=== PATIENT | female | born 1965 | race Caucasian/White ===

== ENCOUNTER 2016-06-16 16:56 | Emergency (ER) | payer OTHER ==
[~2016-06-16 16:56] MED LIST: PEPCID40 MG PO; PERCOCET 325 MG1 TA2 PO
[2016-06-16 17:31] LABS: ABSOLUTE BASOPHIL COUNT 0.1 /CUMM (0.0-0.2); ABSOLUTE EOSINOPHIL COUNT 0.2 /CUMM (0.0-0.7); ABSOLUTE GRANULOCYTE CT 3.7 /CUMM (1.4-6.5); ABSOLUTE LYMPH COUNT 1.5 /CUMM (1.2-3.4); ABSOLUTE MONOCYTE COUNT 0.4 /CUMM (0.10-0.60); EOSINOPHIL % 2.6 % (0-5); GRANULOCYTE % 63.1 % (42.2-75.2); HEMATOCRIT 42.8 % (37-47); MEAN CORPUSCULAR HGB 28.4 PG (27.0-31.0); MEAN CORPUSCULAR HGB CONC 32.7 G/DL (33.0-37.0); MEAN CORPUSCULAR VOLUME 86.6 FL (81.0-99.0); PLATELET COUNT 177 /CUMM (130-400); RBC DISTRIBUTION WIDTH 13.4 % (11.5-14.5); RED BLOOD CELL CT 4.95 /CUMM (4.20-5.40); WHITE BLOOD CELL COUNT 5.8 /CUMM (4.8-10.8)
--- NOTE | 2016-06-16 17:39 | ED CARDIAC/CP/PALPITATIONS ---
History of Present Illness General Chief Complaint: Chest Pain Stated Complaint: CHEST PAIN Source: patient Exam Limitations: no limitations Vital Signs & Intake/Output Vital Signs & Intake/Output Vital Signs Date Time Temp Pulse Resp B/P Pulse O2 O2 Flow FiO2 Ox Delivery Rate 06/16 1739 96.9 66 18 121/63 100 Room Air Allergies Coded Allergies: Sulfa (Sulfonamide Antibiotics) (Severe, RASH, RESPIRATORY DISTRESS 06/16/16) Reconcile Medications Budesonide/Formoterol Fumarate (Symbicort 160-4.5 Mcg Inhaler) 160 MCG-4.5 MCG/ ACTUATION HFA.AER.AD 1 PUF INH BID ASTHMA (Reported) Estradiol (Vivelle-Dot) 0.075 MG/24 HOUR PATCH.TDSW 1 PATCH TOP 2XW HRT ( Reported) Triage Note: PT BROUGHT DIRECTLY BACK FOR WAITING RM FOR EKG DUE TO LEFT SIDED CHEST PAIN THAT READIATES INTO HER LEFT SHOULDER STARTING 30 MINS PRIOR TO ARRIVAL. PT STATES HE WOKE HER UP OUT OF A NAP. PT STATES SHE FELT "OFF" DURING LUNCH TODAY. PT DENIES CARDIAC HX Triage Nurses Notes Reviewed? yes HPI: 51-year-old female here with complaints of sudden onset left-sided chest pain to left lateral chest left breast area. It is moderate to severe sharp worse when she takes deep breath. She is not short of breath. She has no substernal chest pain, pain is not radiating. She states that she woke this morning not feeling entirely normal, states she was fatigued. She felt mildly nauseous intermittently throughout the day and did not have much of an appetite at lunch time. Proximally 45 minutes ago she had the sudden onset of left-sided chest pain radiating to the left shoulder area. It is better when she lays still and worse when she takes a deep breath. She is on hormonal replacement therapy via patch to the right lower pelvic region that she has been taking since her partial hysterectomy several years ago. She just had the dose increased 2 weeks ago. She has no history of DVT or PE, she has no leg swelling or edema there are no recent surgeries or periods of immobilization. She has a strong family history of heart disease with both her parents having MIs in the 50 and her mother, she believes, having a PE secondary to lupus. Both parents are . Patient denies any hemoptysis. There is been no treatment thus far. (HARDIK MARSH) Past History Travel History Traveled to [place] past 21 day No Medical History Any Pertinent Medical History? see below for history Neurological: NONE EENT: NONE Cardiovascular: NONE Respiratory: asthma Gastrointestinal: NONE Hepatic: NONE Renal: NONE Musculoskeletal: NONE Psychiatric: NONE Endocrine: NONE Blood Disorders: NONE Cancer(s): NONE MATH INSTRUCTOR/Reproductive: NONE Surgical History Surgical History: N Psychosocial History Who do you live with Spouse What is your primary language Syriac Family History Hx Contributory? Yes (VT, VTE) (HARDIK MARSH) Review of Systems Review of Systems Constitutional: Reports: see HPI. EENTM: Reports: no symptoms. Respiratory: Reports: see HPI. Cardiovascular: Reports: see HPI. GI: Reports: no symptoms. Genitourinary: Reports: no symptoms. Musculoskeletal: Reports: no symptoms. Skin: Reports: no symptoms. Neurological/Psychological: Reports: no symptoms. Hematologic/Endocrine: Reports: no symptoms. Immunologic/Allergic: Reports: no symptoms. All Other Systems: Reviewed and Negative (HARDKI MARSH) Physical Exam Physical Exam Respiratory: normal breath sounds, no respiratory distress Cardiovascular: regular rate/rhythm Comments: Well-developed well-nourished no apparent distress. HEENT: Atraumatic, extraocular motion intact Neck: Supple, no lymphadenopathy Back: Nontender Respiratory: No respiratory distress There is mild tenderness to the left lateral rib cage region and significant increased pain when taking deep breath. Extremities: No edema, full range of motion, nontender, no calf pain or tenderness Neuro: Alert and oriented x3 Psych: Mood affect normal, normal memory normal judgment. Skin: Warm and dry, no rash on exposed skin Core Measures ACS in differential dx? Yes Severe Sepsis Present: No Septic Shock Present: No (HARDIK MARSH) Progress Differential Diagnosis: AMI, aortic dissection, atrial fibrillation, cholecystitis, CHF/pulm edema, costochondritis, hyperkalemia, hypovolemia, hyperthyroid, hyperventilation, intracranial hemorrhage, musculoskeletal pain, myocarditis, pancreatitis, pericarditis, pneumonia, pneumothorax, PSVT, pulmonary embolism, PUD/GERD, PVCs/PACs, respiratory failure, rib fracture, sepsis, unstable angina, V-fib/V-Tach, WPW syndrome Plan of Care: Orders Procedure Date/time Status EKG 06/17 1923 Active TROPONIN LEVEL 03/24 1724 Complete COMPREHENSIVE METABOLIC PANEL 03/24 1724 Complete CBC WITHOUT DIFFERENTIAL 06/16 172 Complete EKG 06/16 1657 Active Laboratory Tests 06/16/16 1725: Anion Gap 10, Estimated GFR > 60, BUN/Creatinine Ratio 22.2, Glucose 90, Calcium 10.2, Total Bilirubin 1.2, AST 22, ALT 29, Alkaline Phosphatase 62, Troponin I < 0.01, Total Protein 8.2, Albumin 4.8, Globulin 3.4, Albumin/Globulin Ratio 1.4, CBC w Diff NO MAN DIFF REQ, RBC 4.95, MCV 86.6, MCH 28.4, RDW 13.4, MPV 9.0, Gran % 63.1, Lymphocytes % 25.7, Monocytes % 7.6, Eosinophils % 2.6, Basophils % 1.0, Absolute Granulocytes 3.7, Absolute Lymphocytes 1.5, Absolute Monocytes 0.4 , Absolute Eosinophils 0.2, Absolute Basophils 0.1, PUBS MCHC 32.7 L Initial ED EKG: NSR, rate (75), no ST T wave changes Prior EKG: unchanged Repeat EKG: unchanged (54bpm, nsr, no st/t wave gambino) Rhythm Strip: normal sinus rhythm Comments: Patient given IV Toradol 30 mg for her pain, it is pleuritic. I'm concerned of PE due to patient's exogenous hormone use. We will order a CTA Laboratory values and EKG are unremarkable. CTA is negative, discussed with patient. She has a low risk factors for lung cancer, never smoker, no workup needed for her pulmonary nodule which was discussed with her. She still having mild pain in the left lateral rib region. We'll give her IV acetaminophen and repeat EKG. Injury date and time repeat EKG is normal. Patient reevaluated and her symptoms have nearly completely resolved. I do not feel as though she requires any further emergent workup and this is discussed with her. She is having pleuritic chest pain, she should continue Motrin as outpatient and follow-up with her primary care doctor if pain continues or return to the ER with worsening concerns of chest pain shortness of breath fever or flulike illness (LEIGH NAM,HARDIK) Departure Departure Disposition: HOME OR SELF CARE Condition: Stable Clinical Impression Primary Impression: Pleuritic chest pain Referrals: AZAM RAMÍREZ,OLIVIA Sotelo (PCP/Family) Additional Instructions: Follow-up with your primary care doctor with concerns of continued pain in the chest. Return to the ER with worsening symptoms, worsening pain, shortness of breath, fever, flulike illness or cough. Departure Forms: Customer Survey General Discharge Information (HARDIK MARSH) PA/OCEAN FREIGHT MANAGER Co-Sign Statement Statement: ED Attending supervision documentation- [x] I saw and evaluated the patient. I have also reviewed all the pertinent lab results and diagnostic results. I agree with the findings and the plan of care as documented in the PA's/OCEAN FREIGHT MANAGER's documentation. [x] I have reviewed the ED Record and agree with the PA's/OCEAN FREIGHT MANAGER's documentation. [] Additions or exceptions (if any) to the PAs/OCEAN FREIGHT MANAGER's note and plan are summarized below: [] (MTICH PACHECO DO) Critical Care Note Critical Care Note Critical Care Time: non-applicable (HARDIK MARSH)
--- NOTE | 2016-06-16 19:10 | CT SCAN REPORT ---
EXAMINATION: CT ANGIOGRAM OF THE CHEST WITH AND WITHOUT CONTRAST (CT PULMONARY ANGIOGRAM FOR PE) CLINICAL INFORMATION: Reason for Study:
Presumptive Dx: EVAL FOR PE, L SIDE CHEST PAIN
Signs Symptoms: L SIDE CP, ON HRT
COMPARISON: CT abdomen pelvis October 10, 2014 TECHNIQUE: Prior to contrast administration, noncontrast localization images were obtained. Subsequently, multidetector volumetric imaging was performed from the thoracic inlet to below the diaphragms following the administration of 72 mL Optiray 350 intravenous contrast. No contrast reaction reported Sagittal, coronal, and MIP oblique sagittal reformatted images were obtained on the CT workstation, uploaded to PACS, and reviewed. Total exam dose-length product 178.8 mGy-cm FINDINGS: QUALITY OF STUDY/CONTRAST BOLUS: Satisfactory. PULMONARY ARTERIES: No central or segmental pulmonary emboli. Normal caliber main pulmonary artery. THORACIC AORTA: No aneurysm or dissection. The right innominate and left common carotid artery share a common origin. The visualized great vessels are patent. LUNG: The central airways are patent. There is no focal consolidation, mass or suspicious pulmonary nodule identified. Nonspecific 4 mm nodule seen at the left lung apex (image 47, series 2). A 3 mm nodule seen within the right lower lobe at the right lung base (image 405, series 2). A 3 mm subpleural nodule seen within the right middle lobe (image 296, series 2). A 4 mm nodule is noted within the right lower lobe adjacent to the major fissure (image 307, series 2). PLEURA: No pleural effusion or pneumothorax. MEDIASTINUM: Normal heart size. Trace pericardial effusion. No hilar or mediastinal lymphadenopathy. No evidence of septal bowing or right heart strain. CHEST WALL/AXILLA: No axillary or internal mammary lymphadenopathy. OSSEOUS STRUCTURES: No acute or suspicious osseous abnormality. UPPER ABDOMEN: Stable 1.6 cm hypoattenuating lesion within the right hepatic lobe which is not characterized in this examination. Imaged upper abdomen is otherwise unremarkable. No reflux of contrast into the hepatic veins to suggest elevated right heart pressures. IMPRESSION: 1. No evidence of pulmonary embolism. 2. Nonspecific pulmonary nodules measuring up to 4 mm. Recommend follow-up as per Fleischner Society guidelines below. 3. Stable nonspecific hypoattenuating lesion within the right hepatic lobe. Various management parameters for solitary pulmonary nodules are in the literature. According to the Fleischner Society, recommendations for pulmonary nodules are as follows: Nodule size < or = to 4 mm in LOW RISK PATIENTS: No follow up needed. Nodule size < or = to 4 mm in HIGH RISK PATIENTS: Follow up CT at 12 months; if unchanged, no further follow up. VTE: negative
[2016-06-16] MEDS ORDERED: VIVELLE-DOT1 EAC4 TOP (19:35)
[2016-06-16] MEDS ORDERED: SYMBICORT 16010.2 GM INH (19:35)
[2016-06-16 20:10] VITALS: BP 110/53
== END 2016-06-16 20:14 ==
LOC: ERH 16:56
PROVIDERS: Physician Assistant Surgical
DX: R07.89 Other chest pain (principal)
CPT/HCPCS: 93005; 93010; 96374; 96375; J0131; J1885